=== PATIENT | female | born 1980 | race Two or more races ===

== ENCOUNTER 2018-03-14 10:10 | Outpatient (CLI) | payer SELFPAY ==
[~2018-03-14] VITALS: Ht 175.3 cm; Wt 70.0 kg
[2018-03-14 11:06] VITALS: BP 127/64
[2018-03-14 11:11] LABS: MICROSCOPIC INDICATED
[2018-03-14] MEDS ORDERED: PREN1TAB60 PO (11:20)
== END 2018-03-14 11:55 | disposition home or self-care (01) ==
LOC: LDOP 10:10
PROVIDERS: ATTEND Obstetrics & Gynecology
DX: O26.892 Other specified pregnancy related conditions, second trimester (principal); Z3A.25 25 weeks gestation of pregnancy; R10.30 Lower abdominal pain, unspecified
CPT/HCPCS: 36415; 59025; 81001; 82731; 87086; 99201; G0463

== ENCOUNTER 2018-05-28 10:21 | Outpatient (CLI) | payer BC ==
[~2018-05-28] VITALS: Ht 175.3 cm; Wt 80.4 kg
[~2018-05-28 10:21] MED LIST: PREN1TAB60 PO
[2018-05-28 10:44] VITALS: BP 142/99
[2018-05-28 11:08] LABS: BASOPHILS # (AUTO) 0.06 x10^3/uL (0-0.1); BASOPHILS % (AUTO) 1 % (0-1); EOSINOPHILS # (AUTO) 0.03 x10^3/uL (0-0.4); EOSINOPHILS % (AUTO) 0 % (1-7); LYMPHOCYTES % (AUTO) 18 % (22-44); MD NO; MEAN CORPUSCULAR HEMOGLOBIN 30.6 pg (27.0-34.8); MEAN CORPUSCULAR HGB CONC 33.6 g/dL (32.4-35.8); MEAN CORPUSCULAR VOLUME 91.2 fL (80-100); MEAN PLATELET VOLUME 11.2 fL (7.4-10.4); MONOCYTES # (AUTO) 0.48 x10^3/uL (0.2-0.8); MONOCYTES % (AUTO) 6 % (2-9); NEUTROPHILS # (AUTO) 5.67 x10^3/uL (1.8-6.8); NEUTROPHILS % (AUTO) 74 % (42-75); PLATELET COUNT 162 x10^3/uL (130-400); RED BLOOD COUNT 3.64 x10^6/uL (3.82-5.3); RED CELL DISTRIBUTION WIDTH 13.6 % (9.6-15.2)
[2018-05-28 11:13] LABS: ALBUMIN 2.1 g/dL (3.4-5.0); ANION GAP 8 mmol/L (5-15); CALCIUM 7.8 mg/dL (8.5-10.1); CHLORIDE 112 mmol/L (98-107)
[2018-05-28 11:16] LABS: ALANINE AMINOTRANSFERASE 9 U/L (12-78); ALKALINE PHOSPHATASE 120 U/L (45-117); BILIRUBIN,TOTAL 0.4 mg/dL (0.2-1.0); CREATININE 0.62 mg/dL (0.55-1.02); TOTAL PROTEIN 5.8 g/dL (6.4-8.2)
[2018-05-28] MEDS ORDERED: LACTATED RINGERS 1,000 ML IV SCH (12:00)
[2018-05-28 12:18] LABS: CREATININE,URINE RANDOM 97.7 mg/dL
[2018-05-28 12:21] LABS: MICROSCOPIC INDICATED
[2018-05-28] MEDS ORDERED: BETAMETHASONE 6 MG/ML, 5ML IM ONE ×2 (13:00→13:53)
== END 2018-05-28 14:25 | disposition home or self-care (01) ==
LOC: LDOP 10:21
PROVIDERS: ATTEND Obstetrics & Gynecology
DX: O16.3 Unspecified maternal hypertension, third trimester (principal); Z3A.35 35 weeks gestation of pregnancy
CPT/HCPCS: 36415; 59025; 76819; 80053; 81001; 82570; 84156; 84550; 85025; 96372; 99211; J0702; J7120; 76810; 81050; G0463

== ENCOUNTER 2018-05-29 14:14 | Outpatient (CLI) | payer BC ==
[2018-05-29 14:25] VITALS: BP 148/93
[2018-05-29] MEDS ORDERED: BETAMETHASONE 6 MG/ML, 5ML IM ONE (14:25)
== END 2018-05-29 14:30 | disposition home or self-care (01) ==
LOC: LDOP 14:14
PROVIDERS: ATTEND Obstetrics & Gynecology
DX: O30.003 Twin pregnancy, unspecified number of placenta and unspecified number of amniotic sacs, third trimester (principal); O13.3 Gestational [pregnancy-induced] hypertension without significant proteinuria, third trimester; Z3A.35 35 weeks gestation of pregnancy
CPT/HCPCS: 59025; 96372; 99211; J0702; G0463

== ENCOUNTER 2018-05-31 11:03 | Inpatient (IN) | payer BC ==
[~2018-05-31] VITALS: Ht 175.3 cm; Wt 80.5 kg
[2018-05-31 11:18] VITALS: BP 144/95
[2018-05-31 12:19] LABS: BASOPHILS # (AUTO) 0.03 x10^3/uL (0-0.1); BASOPHILS % (AUTO) 0 % (0-1); EOSINOPHILS % (AUTO) 0 % (1-7); LYMPHOCYTES # (AUTO) 1.83 x10^3/uL (1-3.4); LYMPHOCYTES % (AUTO) 21 % (22-44); MD NO; MEAN CORPUSCULAR HEMOGLOBIN 30.5 pg (27.0-34.8); MEAN CORPUSCULAR HGB CONC 33.4 g/dL (32.4-35.8); MEAN CORPUSCULAR VOLUME 91.3 fL (80-100); MEAN PLATELET VOLUME 11.1 fL (7.4-10.4); MONOCYTES # (AUTO) 0.67 x10^3/uL (0.2-0.8); MONOCYTES % (AUTO) 7 % (2-9); NEUTROPHILS # (AUTO) 6.42 x10^3/uL (1.8-6.8); NEUTROPHILS % (AUTO) 72 % (42-75); PLATELET COUNT 160 x10^3/uL (130-400); RED BLOOD COUNT 3.52 x10^6/uL (3.82-5.3); RED CELL DISTRIBUTION WIDTH 13.6 % (9.6-15.2)
[2018-05-31 12:27] LABS: ALANINE AMINOTRANSFERASE 13 U/L (12-78); ALBUMIN 2.4 g/dL (3.4-5.0); ANION GAP 6 mmol/L (5-15); BILIRUBIN, DIRECT 0.1 mg/dL (0.1-0.2); CALCIUM 7.4 mg/dL (8.5-10.1); CHLORIDE 114 mmol/L (98-107); CREATININE 0.61 mg/dL (0.55-1.02)
[2018-05-31 12:30] LABS: ALKALINE PHOSPHATASE 111 U/L (45-117); BILIRUBIN,TOTAL 0.4 mg/dL (0.2-1.0); TOTAL PROTEIN 5.7 g/dL (6.4-8.2)
[2018-05-31 12:34] LABS: MICROSCOPIC INDICATED
[2018-05-31] MEDS ORDERED: MAGNESIUM SULFATE PMX 4GM/100M 100 ML ONE (14:49)
[2018-05-31] MEDS ORDERED: OXYTOCIN 30U/ 0.9% NaCL 500ML 500 ML ONE (14:49)
[2018-05-31] MEDS ORDERED: MAGNESIUM SULF. PMX 20GM/500ML 500 ML IV ONE (14:49)
[2018-05-31] MEDS ORDERED: LACTATED RINGERS 1,000 ML IV PRN (15:08)
[2018-05-31] MEDS ORDERED: LABETALOL 5MG/ML, 20ML IVPush PRN ×3 (15:30)
[2018-05-31] MEDS ORDERED: LABETALOL 5 MG/ML SYRINGE IVPush PRN (15:30)
[2018-05-31] MEDS ORDERED: MAGNESIUM SULFATE PMX 4GM/100M 100 ML IVPB ONE (15:30)
[2018-05-31] MEDS ORDERED: hydrALAzine 20 MG/ML, 1ML IVPush ONE (15:30)
[2018-05-31] MEDS: MAGNESIUM SULF. PMX 20GM/500ML 500 ML IV SCH (15:38)
[2018-05-31] MEDS ORDERED: NEWBORN KIT ONE (16:46)
[2018-05-31] MEDS ORDERED: OXYTOCIN 30U/ 0.9% NaCL 500ML 500 ML IV ONE (17:00)
[2018-05-31] MEDS ORDERED: FENTANYL PF 100 MCG/2ML IV PRN (17:00)
[2018-05-31] MEDS ORDERED: FENTANYL PF 100 MCG/2ML IVPush PRN (17:00)
[2018-05-31] MEDS ORDERED: ACETAMINOPHEN 325 MG TABLET ONE (20:07)
[2018-05-31] MEDS: ACETAMINOPHEN 325 MG TABLET PO PRN (20:10)
[2018-05-31] MEDS ORDERED: FENTANYL/BUPIV./NS/PF 250 ML EPIDCONT SCH (20:20)
[2018-05-31] MEDS ORDERED: FENTANYL PF 500 MCG, BUPIVACAINE/PF 0.5%, 30ML 62.5 ML in SODIUM CHLORIDE 0.9% 177.5 ML EPIDCONT SCH (20:30)
[2018-05-31] MEDS ORDERED: D5%-LACTATED RINGERS 1,000 ML IV SCH (21:09)
[2018-05-31] MEDS ORDERED: OXYTOCIN 30U/ 0.9% NaCL 500ML 500 ML IV PRN (21:09)
[2018-06-01] MEDS ORDERED: MAGNESIUM SULF. PMX 20GM/500ML 500 ML IV ONE ×2 (00:55→11:12)
[2018-06-01] MEDS: MAGNESIUM SULF. PMX 20GM/500ML 500 ML IV SCH (00:57)
[2018-06-01] MEDS ORDERED: MISOPROSTOL 200 MCG TABLET ONE ×2 (03:03→15:46)
[2018-06-01] MEDS ORDERED: LIDOCAINE 1%, 20ML ONE (03:03)
[2018-06-01] MEDS ORDERED: ACETAMINOPHEN 325 MG TABLET ONE (04:41)
[2018-06-01] MEDS: ACETAMINOPHEN 325 MG TABLET PO PRN (04:43)
[2018-06-01] MEDS ORDERED: BUPIVACAINE 0.25% ONE (08:39)
[2018-06-01] MEDS ORDERED: LIDOCAINE-MPF 2% ,5ML ONE ×2 (13:43→13:44)
[2018-06-01] MEDS ORDERED: EPHEDRINE 50 MG/ML, 1ML ONE (13:50)
[2018-06-01] MEDS ORDERED: ONDANSETRON 2 MG/ML ONE (13:50)
[2018-06-01] MEDS ORDERED: CEFAZOLIN 1,000 MG ONE ×2 (13:59)
[2018-06-01] MEDS ORDERED: SODIUM CHLORIDE 0.9% PF 10ML ONE ×2 (13:59)
[2018-06-01] MEDS ORDERED: FENTANYL PF 100 MCG/2ML ONE (14:12)
[2018-06-01] MEDS ORDERED: HYDROmorphone 2 MG/ML, 1ML ONE (14:22)
[2018-06-01] MEDS: OXYTOCIN 30U/ 0.9% NaCL 500ML 500 ML IV SCH (14:54)
[2018-06-01] MEDS: LACTATED RINGERS 1,000 ML IV SCH ×3 (14:54→22:54)
[2018-06-01] MEDS ORDERED: MORPHINE SULFATE 4 MG/ML, 1ML IVPush PRN (15:00)
[2018-06-01] MEDS ORDERED: MISOPROSTOL 200 MCG TABLET PR PRN (15:00)
[2018-06-01] MEDS ORDERED: ONDANSETRON 2MG/ML, 2ML IV PRN (15:00)
[2018-06-01] MEDS ORDERED: OXYcodone IR 5MG TABLET PO PRN (15:00)
[2018-06-01] MEDS ORDERED: morphine SULFATE 10 MG/ML, 1ML IVPush PRN (15:00)
[2018-06-01] MEDS ORDERED: CARBOPROST TROMETHAMINE 250 MCG/ML, 1ML IM PRN (15:00)
[2018-06-01] MEDS ORDERED: METHYLERGONOVINE 0.2 MG/ML IM PRN (15:00)
[2018-06-01] MEDS ORDERED: OXYTOCIN 30U/ 0.9% NaCL 500ML 500 ML ONE ×2 (15:47→16:18)
[2018-06-01 18:31] LABS: MEAN CORPUSCULAR HEMOGLOBIN 30.4 pg (27.0-34.8); MEAN CORPUSCULAR HGB CONC 33.3 g/dL (32.4-35.8); MEAN CORPUSCULAR VOLUME 91.1 fL (80-100); MEAN PLATELET VOLUME 10.5 fL (7.4-10.4); PLATELET COUNT 138 x10^3/uL (130-400); RED BLOOD COUNT 2.84 x10^6/uL (3.82-5.3)
[2018-06-01 18:34] LABS: BASOPHILS % (AUTO) 0 % (0-1); EOSINOPHILS # (AUTO) 0.01 x10^3/uL (0-0.4); EOSINOPHILS % (AUTO) 0 % (1-7); LYMPHOCYTES # (AUTO) 1.04 x10^3/uL (1-3.4); LYMPHOCYTES % (AUTO) 6 % (22-44); MD SCAN; MONOCYTES # (AUTO) 0.83 x10^3/uL (0.2-0.8); MONOCYTES % (AUTO) 4 % (2-9); NEUTROPHILS # (AUTO) 16.93 x10^3/uL (1.8-6.8); NEUTROPHILS % (AUTO) 90 % (42-75)
[2018-06-01 21:20] VITALS: BP 127/92
[2018-06-01] MEDS ORDERED: KETOROLAC 30 MG/1 ML ONE (21:53)
[2018-06-01] MEDS: CEFAZOLIN 2,000 MG in SODIUM CHLORIDE 0.9% 50 ML IV SCH (21:55)
[2018-06-01] MEDS: KETOROLAC 30 MG/1 ML IV SCH (21:55)
[2018-06-02] VITALS (8 sets, daily range): BP systolic 119–137; BP diastolic 66–92
[2018-06-02] MEDS: LACTATED RINGERS 1,000 ML IV SCH ×2 (00:54→10:54)
[2018-06-02] MEDS: OXYTOCIN 30U/ 0.9% NaCL 500ML 500 ML IV SCH (00:54)
[2018-06-02] MEDS: KETOROLAC 30 MG/1 ML IV SCH ×5 (03:00→21:18)
[2018-06-02] MEDS ORDERED: MAGNESIUM SULF. PMX 20GM/500ML 500 ML IV ONE (04:13)
[2018-06-02] MEDS ORDERED: KETOROLAC 30 MG/1 ML ONE ×2 (04:13→09:26)
[2018-06-02] MEDS: CEFAZOLIN 2,000 MG in SODIUM CHLORIDE 0.9% 50 ML IV SCH ×2 (04:22→12:24)
[2018-06-02 06:22] LABS: MEAN CORPUSCULAR HEMOGLOBIN 29.5 pg (27.0-34.8); MEAN CORPUSCULAR HGB CONC 32.8 g/dL (32.4-35.8); PLATELET COUNT 109 x10^3/uL (130-400); RED BLOOD COUNT 2.11 x10^6/uL (3.82-5.3); RED CELL DISTRIBUTION WIDTH 14.4 % (9.6-15.2)
[2018-06-02 06:50] LABS: MD YES
[2018-06-02 06:54] LABS: <PLATELET ESTIMATE> ADEQUATE; <RBC MORPHOLOGY> NORMAL; LYMPH#(MANUAL) 0.32 x10^3/uL (1-3.4); LYMPHS% (MANUAL) 2 % (22-44); SEG#(MANUAL) 15.68 x10^3/uL (1.8-6.8); SEGS% (MANUAL) 98 % (42-75)
[2018-06-02 06:55] LABS: <PLT MORPHOLOGY> NORMAL PLT MORPH
[2018-06-02] MEDS ORDERED: DIPHENHYDRAMINE 12.5MG/5ML, 10ML UDC PO ONE (08:30)
[2018-06-02] MEDS ORDERED: ACETAMINOPHEN 325 MG TABLET PO ONE (08:30)
[2018-06-02] MEDS: PRENATAL VIT/IRON/FA 1 EACH TABLET PO SCH (09:00)
[2018-06-02] MEDS ORDERED: ACETAMINOPHEN 325 MG TABLET ONE (09:21)
[2018-06-02] MEDS ORDERED: PRENATAL VIT/IRON/FA 1 EACH TABLET ONE (09:26)
[2018-06-02] MEDS ORDERED: OXYcodone IR 5MG TABLET ONE ×2 (13:42→14:18)
[2018-06-02] MEDS: OXYcodone IR 5MG TABLET PO PRN ×2 (13:43→14:19)
[2018-06-02] MEDS ORDERED: FERROUS SULFATE 325 MG TABLET ONE (13:45)
[2018-06-02] MEDS ORDERED: FERROUS GLUCONATE 324 MG TABLET ONE (13:48)
[2018-06-02] MEDS: FERROUS GLUCONATE 324 MG TABLET PO SCH ×2 (13:49→17:37)
[2018-06-02] MEDS ORDERED: MAGNESIUM SULF. PMX 20GM/500ML 500 ML IV SCH (15:08)
[2018-06-02 15:58] LABS: MEAN CORPUSCULAR HEMOGLOBIN 29.4 pg (27.0-34.8); MEAN CORPUSCULAR HGB CONC 32.3 g/dL (32.4-35.8); MEAN CORPUSCULAR VOLUME 90.9 fL (80-100); MEAN PLATELET VOLUME 10.5 fL (7.4-10.4); PLATELET COUNT 124 x10^3/uL (130-400); RED BLOOD COUNT 2.37 x10^6/uL (3.82-5.3); RED CELL DISTRIBUTION WIDTH 14.3 % (9.6-15.2)
[2018-06-02 16:31] LABS: MD YES
[2018-06-02 16:37] LABS: <PLATELET ESTIMATE> ADEQUATE; <RBC MORPHOLOGY> NORMAL; BAND#(MANUAL) 0.58 x10^3/uL; BANDS%(MANUAL) 4 % (0-7); LARGE PLATELETS 1+; LYMPH#(MANUAL) 1.75 x10^3/uL (1-3.4); LYMPHS% (MANUAL) 12 % (22-44); MONOS#(MANUAL) 0.44 x10^3/uL (0.3-2.7); MONOS% (MANUAL) 3 % (2-9); SEG#(MANUAL) 11.83 x10^3/uL (1.8-6.8); SEGS% (MANUAL) 81 % (42-75)
[2018-06-02] MEDS: SIMETHICONE 80 MG CHEW TAB PO PRN (21:13)
[2018-06-03 00:08] VITALS: BP 129/88
[2018-06-03] MEDS: SIMETHICONE 80 MG CHEW TAB PO PRN ×3 (02:55→09:03)
[2018-06-03] MEDS: KETOROLAC 30 MG/1 ML IV SCH ×2 (02:55→09:02)
[2018-06-03 04:06] VITALS: BP 122/75
[2018-06-03] MEDS: PRENATAL VIT/IRON/FA 1 EACH TABLET PO SCH (08:00)
[2018-06-03] MEDS: OXYcodone IR 5MG TABLET PO PRN ×2 (08:00→13:44)
[2018-06-03] MEDS: FERROUS GLUCONATE 324 MG TABLET PO SCH ×2 (08:00→12:05)
[2018-06-03 08:02] VITALS: BP 143/90
[2018-06-03] MEDS ORDERED: IBUP-1222 PO (11:18)
[2018-06-03] MEDS ORDERED: OXYC-307 PO (11:18)
[2018-06-03] MEDS ORDERED: IBUPROFEN 800 MG TABLET PO PRN (15:00)
== END 2018-06-03 13:50 | disposition home or self-care (01) | DRG 788 ==
LOC: LDOP 11:03 → LDIP 14:21 → 2NW 06-02 14:49
PROVIDERS: ADMIT Obstetrics & Gynecology; ATTEND Obstetrics & Gynecology
PROC: 10D00Z1 Extraction of Products of Conception, Low, Open Approach (ICD-10-PCS; principal; 2018-06-01)
PROC: 10E0XZZ Delivery of Products of Conception, External Approach (ICD-10-PCS; 2018-06-01)
PROC: 10907ZC Drainage of Amniotic Fluid, Therapeutic from Products of Conception, Via Natural or Artificial Opening (ICD-10-PCS; 2018-06-01)
PROC: 10H07YZ Insertion of Other Device into Products of Conception, Via Natural or Artificial Opening (ICD-10-PCS; 2018-06-01)
PROC: 30233N1 Transfusion of Nonautologous Red Blood Cells into Peripheral Vein, Percutaneous Approach (ICD-10-PCS; 2018-06-02)
PROC: 3E0334Z Introduction of Serum, Toxoid and Vaccine into Peripheral Vein, Percutaneous Approach (ICD-10-PCS; 2018-06-02)
DX: O14.14 Severe pre-eclampsia complicating childbirth (principal); O40.3XX2 Polyhydramnios, third trimester, fetus 2; O30.043 Twin pregnancy, dichorionic/diamniotic, third trimester; O26.893 Other specified pregnancy related conditions, third trimester; D64.9 Anemia, unspecified; O32.6XX2 Maternal care for compound presentation, fetus 2; O99.02 Anemia complicating childbirth; Z3A.36 36 weeks gestation of pregnancy; Z37.2 Twins, both liveborn; Z67.91 Unspecified blood type, Rh negative; Z37.0 Single live birth; Z88.6 Allergy status to analgesic agent
CPT/HCPCS: 36415; J2790; J7121; 80053; 81001; 82248; 82570; 83735; 84156; 84550; 85025; 85461; 86850; 86900; 86923; G0378; J0690; J1170; J1885; J2405; J3010; J3490; J2590; J3475; J7120; P9016

== ENCOUNTER 2019-12-08 03:42 | Outpatient (CLI) | payer BC ==
[~2019-12-08] VITALS: Ht 175.3 cm; Wt 75.9 kg
[~2019-12-08 03:42] MED LIST changes: +IBUP-1222 PO; +OXYC-307 PO
[2019-12-08 03:45] VITALS: BP 116/65
== END 2019-12-08 04:40 | disposition home or self-care (01) ==
LOC: LDOP 03:42
PROVIDERS: ATTEND Obstetrics & Gynecology
DX: O09.93 Supervision of high risk pregnancy, unspecified, third trimester (principal); O26.893 Other specified pregnancy related conditions, third trimester; R10.9 Unspecified abdominal pain; Z3A.31 31 weeks gestation of pregnancy
CPT/HCPCS: 59025

== ENCOUNTER 2020-01-06 00:41 | Inpatient (IN) | payer BC ==
[~2020-01-06] VITALS: Ht 175.3 cm; Wt 77.3 kg
[2020-01-06 00:45] VITALS: BP 125/75
[2020-01-06 01:45] LABS: MICROSCOPIC INDICATED
[2020-01-06 03:06] LABS: BASOPHILS % (AUTO) 1 % (0-1); EOSINOPHILS % (AUTO) 0 % (1-7); LYMPHOCYTES % (AUTO) 16 % (22-44); MEAN CORPUSCULAR HGB CONC 32.1 g/dL (32.4-35.8); MEAN PLATELET VOLUME 9.4 fL (7.4-10.4); MONOCYTES % (AUTO) 6 % (2-9); NEUTROPHILS % (AUTO) 77 % (42-75); PLATELET COUNT 211 x10^3/uL (130-400); RED BLOOD COUNT 4.35 x10^6/uL (3.82-5.3); RED CELL DISTRIBUTION WIDTH 16.2 % (9.6-15.2)
[2020-01-06] MEDS ORDERED: FAMOTIDINE 20 MG TABLET ONE (03:12)
[2020-01-06 03:14] LABS: MD NO
[2020-01-06 03:19] LABS: INTERNATIONAL NORMALIZED RATIO 0.91 (0.93-1.1); PROTHROMBIN TIME 9.4 Seconds (9.6-11.5)
[2020-01-06] MEDS ORDERED: BETAMETHASONE 6 MG/ML, 5ML IM SCH (05:30)
[2020-01-06] MEDS ORDERED: BETAMETHASONE 6 MG/ML, 5ML IM ONE (05:31)
[2020-01-06] MEDS ORDERED: LACTATED RINGERS 1,000 ML IV SCH ×2 (07:30→12:00)
[2020-01-06] MEDS ORDERED: METOCLOPRAMIDE 5 MG/ML, 2ML ONE (09:27)
[2020-01-06] MEDS ORDERED: NEWBORN KIT ONE (09:31)
[2020-01-06] MEDS ORDERED: LACTATED RINGERS 1,000 ML IVBOLUS ONE (11:00)
[2020-01-06] MEDS ORDERED: OXYTOCIN 30U/ 0.9% NaCL 500ML 500 ML ONE (11:46)
[2020-01-06] MEDS ORDERED: morphine SULFATE/PF 0.5 MG/ML, 10ML ONE (11:57)
[2020-01-06] MEDS ORDERED: CEFAZOLIN 1,000 MG ONE (11:58)
[2020-01-06] MEDS ORDERED: ONDANSETRON 2MG/ML, 2ML ONE (11:58)
[2020-01-06] MEDS ORDERED: DEXAMETHASONE 4 MG/ML, 1ML ONE (11:58)
[2020-01-06] MEDS ORDERED: KETOROLAC 30 MG/1 ML ONE (11:58)
[2020-01-06] MEDS ORDERED: OXYTOCIN 10 UNITS/ML, 1ML ONE (11:58)
[2020-01-06] MEDS ORDERED: WATER-INJECTION,STERILE 10 ML IV ONE (11:58)
[2020-01-06] MEDS ORDERED: METOCLOPRAMIDE 5 MG/ML, 2ML IV ONE (12:00)
[2020-01-06] MEDS ORDERED: SODIUM CITRATE/CITRIC ACID 30 ML UDC PO ONE (12:00)
[2020-01-06] MEDS ORDERED: morphine SULFATE 10 MG/ML, 1ML IVPush PRN (13:30)
[2020-01-06] MEDS ORDERED: ONDANSETRON 2MG/ML, 2ML IV PRN (13:30)
[2020-01-06] MEDS ORDERED: OXYcodone IR 5MG TABLET PO PRN (13:30)
[2020-01-06] MEDS ORDERED: MISOPROSTOL 200 MCG TABLET PR PRN (13:30)
[2020-01-06] MEDS ORDERED: OXYcodone/APAP 5/325MG TABLET PO PRN ×2 (13:30→18:00)
[2020-01-06] MEDS ORDERED: SIMETHICONE 80 MG CHEW TAB PO PRN (13:30)
[2020-01-06] MEDS ORDERED: ACETAMINOPHEN 325 MG TABLET PO PRN (13:30)
[2020-01-06] MEDS ORDERED: IBUPROFEN 600 MG TABLET PO PRN (13:30)
[2020-01-06] MEDS: LACTATED RINGERS 1,000 ML IV SCH ×4 (13:30→23:30)
[2020-01-06] MEDS: OXYTOCIN 30U/ 0.9% NaCL 500ML 500 ML IV SCH ×2 (13:43→23:30)
[2020-01-06 14:45] VITALS: BP 124/85
[2020-01-06] MEDS ORDERED: NALOXONE 0.4 MG/ML, 1ML IV PRN (18:00)
[2020-01-06] MEDS ORDERED: NO SEDATIVES, TRANQUILIZERS OR ANTIEMETICS XX SCH (18:00)
[2020-01-06] MEDS ORDERED: MORPHINE SULFATE 4 MG/ML, 1ML IVPush PRN (18:00)
[2020-01-06] MEDS ORDERED: ONDANSETRON 2MG/ML, 2ML IVPush PRN (18:00)
[2020-01-06] MEDS ORDERED: DIPHENHYDRAMINE 50 MG/ML, 1ML IV PRN (18:00)
[2020-01-06] MEDS: KETOROLAC 30 MG/1 ML IV SCH (19:00)
[2020-01-06] MEDS: KETOROLAC 30 MG/1 ML IVPush SCH (19:16)
[2020-01-06 19:32] VITALS: BP 103/66
[2020-01-06 20:29] LABS: BASOPHILS % (AUTO) 0 % (0-1); EOSINOPHILS % (AUTO) 0 % (1-7); LYMPHOCYTES % (AUTO) 5 % (22-44); MEAN CORPUSCULAR HEMOGLOBIN 26.9 pg (27.0-34.8); MEAN CORPUSCULAR HGB CONC 31.9 g/dL (32.4-35.8); MEAN PLATELET VOLUME 9.7 fL (7.4-10.4); MONOCYTES % (AUTO) 2 % (2-9); NEUTROPHILS % (AUTO) 92 % (42-75); PLATELET COUNT 200 x10^3/uL (130-400); RED BLOOD COUNT 3.94 x10^6/uL (3.82-5.3); RED CELL DISTRIBUTION WIDTH 16.3 % (9.6-15.2)
[2020-01-06] MEDS ORDERED: FAMOTIDINE 20 MG TABLET PO SCH (21:00)
[2020-01-06 21:08] LABS: MD SCAN
[2020-01-06] MEDS ORDERED: RHOGAM FROM BLOOD BANK 1 NOTE EA IM/IV ONE (22:00)
[2020-01-06 23:56] VITALS: BP 103/66
[2020-01-07] MEDS: KETOROLAC 30 MG/1 ML IV SCH ×4 (01:00→19:00)
[2020-01-07] MEDS: KETOROLAC 30 MG/1 ML IVPush SCH ×4 (01:02→20:16)
[2020-01-07 04:15] VITALS: BP 98/60
[2020-01-07] MEDS: LACTATED RINGERS 1,000 ML IV SCH ×4 (05:30→19:30)
[2020-01-07 07:27] VITALS: BP 107/66
[2020-01-07] MEDS: OXYTOCIN 30U/ 0.9% NaCL 500ML 500 ML IV SCH ×2 (09:30→19:30)
[2020-01-07] MEDS: DOCUSATE 100 MG CAPSULE PO PRN ×2 (09:41→21:13)
[2020-01-07] MEDS: PRENATAL VIT/IRON/FA 1 EACH TABLET PO SCH (09:41)
[2020-01-07 12:50] VITALS: BP 108/71
[2020-01-07 20:00] VITALS: BP 122/80
[2020-01-07] MEDS: FAMOTIDINE 20 MG TABLET PO SCH (21:13)
[2020-01-08] MEDS: KETOROLAC 30 MG/1 ML IVPush SCH ×2 (02:08→08:01)
[2020-01-08 07:00] VITALS: BP 113/74
[2020-01-08] MEDS ORDERED: OXYC-302 PO (07:31)
[2020-01-08] MEDS: PRENATAL VIT/IRON/FA 1 EACH TABLET PO SCH (08:04)
[2020-01-08] MEDS: DOCUSATE 100 MG CAPSULE PO PRN (08:04)
[2020-01-08] MEDS: FAMOTIDINE 20 MG TABLET PO SCH (08:05)
== END 2020-01-08 14:08 | disposition home or self-care (01) | DRG 787 ==
LOC: LDOP 00:41 → OBSVTOIN 02:30 → LDIP 02:30 → UNDOADMOB 03:33 → LDIP 03:33 → INTOOBSV 05:45 → OBSVTOIN 05:45 → LDIP 05:45 → 2NW 14:47
PROVIDERS: ADMIT Obstetrics & Gynecology; ATTEND Obstetrics & Gynecology
PROC: 10D00Z1 Extraction of Products of Conception, Low, Open Approach (ICD-10-PCS; principal; 2020-01-06)
DX: O32.2XX0 Maternal care for transverse and oblique lie, not applicable or unspecified (principal); O44.03 Complete placenta previa NOS or without hemorrhage, third trimester; O34.211 Maternal care for low transverse scar from previous cesarean delivery; Z37.0 Single live birth; Z3A.35 35 weeks gestation of pregnancy; Z67.91 Unspecified blood type, Rh negative; Z88.5 Allergy status to narcotic agent
CPT/HCPCS: 36415; 76815; 81001; 85025; 85384; 85461; 85610; 85730; 86592; 86850; 86870; 86900; 86922; 86923; 87081; 87086; 87635; G0378; J0690; J0702; J1100; J1885; J2274; J2405; J2790; J1200; J2590; J2765; J7120